=== PATIENT | male | born 1945 | race Caucasian/White ===

== ENCOUNTER → 2016-05-31 | Outpatient (CLI) | payer MEDICARE ==
--- NOTE | 2016-05-31 15:28 | XR ---
Right hip HISTORY: Chronic right hip pain 2 views of the right hip No comparisons Alignment, bone mineralization, joint spaces are maintained. There are vascular calcifications noted incidentally. No fracture or dislocation. IMPRESSION: No significant arthropathy.
--- NOTE | 2016-06-07 14:51 | P.ARTDOP ---
Arterial Doppler LOWER EXTREMITY ARTERIAL DOPPLER: DATE OF SERVICE: 05/31/2016 Reason for study: Claudication. Doppler waveforms: Multiphasic bilaterally throughout. Pulse volume recording: Normal configuration. Pressure gradients: None. Ankle-brachial indices: Greater than 1 bilaterally. Toe pressures: 102 on the right, 100 on the left Impression: Normal study.
== END | disposition home or self-care (01) ==
LOC: RADUSWWP 09:27
PROVIDERS: ATTEND Pediatrics
DX: I73.9 Peripheral vascular disease, unspecified (principal); R20.0 Anesthesia of skin; M25.551 Pain in right hip
CPT/HCPCS: 73502; 93923

== ENCOUNTER → 2016-07-04 | Outpatient (CLI) | payer MEDICARE ==
--- NOTE | 2016-07-04 15:34 | XR ---
EXAM TYPE: LUMBAR SPINE X RAY SERIES COMPARISON: NONE HISTORY: Chronic back TECHNIQUE: 3 views are submitted. FINDINGS: Alignment is anatomic. The pedicles are intact. The transverse processes are intact. There is no s pondylolysis or spondylolisthesis. Moderate degenerative disc disease and facet arthropathy L3-S1. Vascular calcifications. Malalignment of the distal jejunal segment likely chronic. IMPRESSION: 1. Multilevel degenerative disc disease. Follow-up with MRI as clinically warranted. See above
== END ==
LOC: RADXRMAIN 15:08
PROVIDERS: ATTEND Pediatrics
DX: M51.36 Other intervertebral disc degeneration, lumbar region (principal)
CPT/HCPCS: 72100

== ENCOUNTER → 2016-08-07 | Outpatient (CLI) | payer MEDICARE ==
--- NOTE | 2016-08-07 15:21 | MR ---
MR lumbar spine wo con CLINICAL HISTORY: LBP, BLE pain x 2-3 years Multiplanar, multiecho imaging of the lumbar spine was obtained without contrast on a 3 Kylah magnet. REFERENCE:None. FINDINGS: Paraspinal soft tissues are normal. Vertebral body height and alignment are maintained. There is no spondylolysis or spondylolisthesis. T here is a mild levoscoliosis. Cord signal is normal. The conus ends normally at the level of the mid body of L1 .At T12-L1, there is mild, bilateral intervertebral foraminal narrowing there is no significant compr essive discopathy. There are hypertrophic changes in the facets. At L1-2, there is disc space loss and disc desiccation. There is no significant intervertebral forami nal narrowing. There is a diffuse disc displacement effacing the thecal sac. There are hypertrophic c hanges within the facets. There is mild trefoiling of the thecal sac. At L2-3, intervertebral foramina appear reasonably well-maintained. There is a diffuse disc displacem ent. This hypertrophic change and capsulitis within the facets. There is mild trefoiling of the theca l sac. At L3-4, there is a broad-based disc protrusion extending into the intervertebral foramen causing mil d, bilateral intervertebral foraminal narrowing. There is hypertrophic change and capsulitis in the f acets. There is moderate central canal stenosis. At L4-5, the intervertebral foramina are widely maintained. There is a diffuse disc displacement. The re are marked hypertrophic changes in the facets. There is mild trefoiling of the thecal sac. At L5-S1, the intervertebral foramina are well maintained. There is no significant compressive discop athy. There are hypertrophic changes in the facets. IMPRESSION: 1. MULTILEVEL INTERVERTEBRAL FORAMINAL NARROWING. 2. DIFFUSE DEGENERATIVE DISC DISEASE AND FACET ARTHROPATHY. 3. BROAD-BASED DISC PROTRUSION, L3-4 EXTENDING INTO BOTH INTERVERTEBRAL FORAMEN CAUSING MILD TO MODER ATE INTERVERTEBRAL FORAMINAL NARROWING. 4. MILD TO MODERATE CENTRAL CANAL STENOSIS, L3-4.
== END | disposition home or self-care (01) ==
LOC: RADMRIMAIN 14:19
PROVIDERS: ATTEND Nurse Practitioner Family
DX: M48.06 Spinal stenosis, lumbar region (principal); M99.73 Connective tissue and disc stenosis of intervertebral foramina of lumbar region; M51.36 Other intervertebral disc degeneration, lumbar region; M51.26 Other intervertebral disc displacement, lumbar region; M46.06 Spinal enthesopathy, lumbar region
CPT/HCPCS: 72148

== ENCOUNTER 2017-12-29 18:03 | Emergency (ER) | payer MEDICARE ==
[2017-12-29] MEDS ORDERED: ONDANSETRON 4 MG/2 ML VIAL IVP STA (18:17)
[2017-12-29] MEDS ORDERED: HYDROmorphone 1 MG/ML 1 ML SYRINGE IVP STA (18:18)
--- NOTE | 2017-12-29 18:24 | ED ---
Lower Extremity Injury HPI - General Source: patient, RN notes reviewed Mode of arrival: ambulatory Limitations: no limitations <Maico Frazier - Last Filed: 12/29/17 19:11> <Pedro He - Last Filed: 12/29/17 19:15> - General Chief Complaint: Extremity Injury, Lower Stated Complaint: broken leg Time Seen by Provider: 12/29/17 18:13 - History of Present Illness Initial Comments: 72-year-old male presents emergency Department chief complaint right ankle injury. Patient states that he was stepping down his steps and his ankle rolled. Patient states there is a deformity. He has no prior ankle injuries no prior fractures. He does see [facility]opedics associate currently for his back. Patient denies any numbness or tingling at this time. Patient has a head injury no loss conscious. (Maico Frazier) - Related Data Previous Rx's Medication Instructions Recorded Ibuprofen 800 mg PO Q6HR #20 tablet 12/29/17 Allergies Allergy/AdvReac Type Severity Reaction Status Date / Time No Known Allergies Allergy Verified 12/29/17 18:06 Review of Systems ROS Other: All systems not noted in ROS Statement are negative. <Maico Frazier - Last Filed: 12/29/17 19:11> ROS Other: All systems not noted in ROS Statement are negative. <Pedro He - Last Filed: 12/29/17 19:15> ROS Statement: Those systems with pertinent positive or pertinent negative responses have been documented in the HPI. Past Medical History Past Medical History: Hypertension, Osteoarthritis (OA) History of Any Multi-Drug Resistant Organisms: None Reported Past Surgical History: Orthopedic Surgery Additional Past Surgical History / Comment(s): R hand Past Psychological History: No Psychological Hx Reported Smoking Status: Current every day smoker Past Alcohol Use History: None Reported Past Drug Use History: None Reported <Maico Frazier - Last Filed: 12/29/17 19:11> General Exam Limitations: no limitations General appearance: alert, in no apparent distress Respiratory exam: Present: normal lung sounds bilaterally. Absent: respiratory distress, wheezes, rales, rhonchi, stridor Cardiovascular Exam: Present: regular rate, normal rhythm, normal heart sounds. Absent: systolic murmur, diastolic murmur, rubs, gallop, clicks Extremities exam: Present: other (Right ankle there is obvious deformity, severe tenderness with palpation, neurovascular intact with capillary less than 2 seconds. No proximal tib-fib tenderness) <Maico Frazier - Last Filed: 12/29/17 19:11> Vital Signs 12/29/17 12/29/17 12/29/17 18:07 18:42 18:46 Temperature 97.2 F L Pulse Rate 84 82 80 Respiratory 18 18 16 Rate Blood Pressure 190/98 178/94 180/112 O2 Sat by Pulse 99 100 100 Oximetry 12/29/17 18:58 Temperature Pulse Rate 65 Respiratory 18 Rate Blood Pressure 162/89 O2 Sat by Pulse 100 Oximetry Procedures - Orthopedic Fracture Reduction Fracture #1 Consent Obtained: verbal consent Time Out Performed: Yes Side: right Fracture Reduction Location: tibia, fibula Analgesia: procedural sedation Technique: traction/counter-traction Post Reduction X-rays Demonstrate: acceptable reduction Post-Reduction Neuro Exam: intact Post-Reduction Vascular Exam: intact Splint Applied: Yes Patient Tolerated Procedure: well, no complications - Orthopedic Splinting/Casting Injury #1 Side: right Lower Extremity Injury Location: short leg, ankle Lower Extremity Immobilizer: stirrup splint - Procedural Sedation Procedural Sedation Start Time: 18:43 Procedural Sedation Stop Time: 20:05 Indications: fracture/dislocation reduction Preparation: cardiac cath technician applied, pulse oximeter, capnometry used, supplemental O2 applied IV Etomidate Dose (mgs): 18 Complications: none Patient Tolerated Procedure: well, no complications <Pedro He - Last Filed: 12/29/17 19:15> Medical Decision Making <Maico Frazier - Last Filed: 12/29/17 19:11> <Pedro He - Last Filed: 12/29/17 19:15> - Medical Decision Making 72-year-old male presents emergency Department chief complaint of right ankle injury. Patient has bimalleolar fracture with subluxation. This was reduced by Dr. He. Patient was splinted and will follow-up with his orthopedic physician [facility]. Return parameters were discussed. Case discussed with Freda Cox for [address] [place] [address] who states that he can follow-up on Sunday. (Maico Frazier) Patient was reevaluated by myself, Dr. He. Patient did have conscious sedation and reduction done by myself. OCL was placed. I did review and agree with PAs findings. This includes all diagnostic and treatment plans. Patient is made aware of strict warning to not bear weight on the right leg and need for follow-up with orthopedics and probable surgery. (Pedro He) Disposition Is patient prescribed a controlled substance at d/c from ED?: Yes When asked, does pt state using other controlled substances?: No If prescribed controlled substance>3 days was MAPS reviewed?: Prescribed <3 Days <Maico Frazier - Last Filed: 12/29/17 19:11> <Pedro He - Last Filed: 12/29/17 19:15> Clinical Impression: Bimalleolar ankle fracture, Subluxation of ankle joint Disposition: HOME SELF-CARE Condition: Stable Instructions: Ankle Fracture (ED) Additional Instructions: Please return to the Emergency Department if symptoms worsen or any other concerns. Prescriptions: Ibuprofen 800 mg PO Q6HR #20 tablet Referrals: Eladio Nance MD [Primary Care Provider] - 1-2 days Daria Lay DO [Doctor of Osteopathic Medicine] - 1-2 days
--- NOTE | 2017-12-29 18:31 | XR ---
EXAMINATION TYPE: XR ankle complete RT DATE OF EXAM: 12/29/2017 CLINICAL HISTORY: Right ankle pain after a fall TECHNIQUE: Frontal, lateral and oblique images of the right ankle are obtained. COMPARISON: None. FINDINGS: There is a transversely oriented medial malleolus fracture. There is anterior medial sublux ation of the ankle joint with the tibia medially oriented on the talus. There is an obliquely oriente d fracture of the lateral malleolus. Both fractures are comminuted with more comminution seen of the medial malleolus fracture and the lateral malleolus fracture. No posterior malleolus fracture is defi nitively seen. There is overlying soft tissue swelling. IMPRESSION: Comminuted intra-articular bimalleolar right ankle fracture with anterior medial subluxat ion of the ankle joint without complete dislocation.
[2017-12-29] MEDS: ETOMIDATE 2 MG/ML 10 ML VIAL IV STA ×2 (18:43→18:44)
[2017-12-29 18:59] VITALS: PULSE 65
--- NOTE | 2017-12-29 19:05 | XR ---
EXAMINATION TYPE: XR ankle complete RT DATE OF EXAM: 12/29/2017 CLINICAL HISTORY: Right ankle fracture and subluxation. TECHNIQUE: Frontal, lateral and oblique images of the right ankle are obtained. COMPARISON: Radiograph's of the right ankle earlier on the same date. FINDINGS: There is improved anatomic alignment status post reduction. Talotibial joint appears aligne d. There is redemonstration of bimalleolar comminuted fractures with overlying soft tissue swelling a s discussed on the radiograph earlier the same date of the right ankle. Fibular fracture distal fragm ent is displaced posteriorly 7 mm. Malleolar fracture is displaced anteriorly 5 mm. IMPRESSION: Improved anatomic alignment post reduction of the right ankle fracture subluxation, now a ppropriately aligned.
[2017-12-29 19:23] VITALS: BP 181/99; RESP 17; TEMP 98
== END 2017-12-29 19:46 | disposition home or self-care (01) ==
LOC: EC 18:03
DX: S82.841A Displaced bimalleolar fracture of right lower leg, initial encounter for closed fracture (principal); S09.90XA Unspecified injury of head, initial encounter; F17.200 Nicotine dependence, unspecified, uncomplicated; Z98.890 Other specified postprocedural states; W00.1XXA Fall from stairs and steps due to ice and snow, initial encounter; X50.1XXA Overexertion from prolonged static or awkward postures, initial encounter; Y93.01 Activity, walking, marching and hiking
CPT/HCPCS: 73610; 99283; 27810; 99152; 96374; 96375; J2405; J1170

== ENCOUNTER → 2018-01-02 | Outpatient (CLI) | payer MEDICARE ==
--- NOTE | 2018-01-02 15:16 | CT ---
EXAMINATION TYPE: CT ankle RT wo con DATE OF EXAM: 01/02/2018 COMPARISON: None INDICATION: Trimalleolar fx DLP: 296 mGycm, Automated exposure control for dose reduction was used. CONTRAST: None CT of the ankle is performed on a spiral scan at 3 mm thick sections. Reconstructed images in the cor onal and sagittal planes are reviewed on the computer. FINDINGS: Posterior tibial fracture is evident. This is slightly shifted towards the lateral aspect proximally 3 mm. There is an oblique fracture distal fibula. There is a comminuted fracture the medial malleolus . Diffuse overlying soft tissue swelling is present. There is lateral subluxation of the talus in relation to the tibia. The medial malleolus laterally wi th the talus. There is lateral subluxation of the lateral malleolus relation to the proximal fracture No additional fractures are evident. IMPRESSIONS: 1. Trimalleolar fracture. 2. Subluxation of the talus laterally with associated shift of both medial and lateral malleoli. 3. The medial malleolus fracture is noted to be comminuted.
== END ==
LOC: RADCTMAIN 12:47
PROVIDERS: ATTEND Orthopaedic Surgery
DX: S82.851A Displaced trimalleolar fracture of right lower leg, initial encounter for closed fracture (principal); S93.01XA Subluxation of right ankle joint, initial encounter; S82.51XA Displaced fracture of medial malleolus of right tibia, initial encounter for closed fracture

== ENCOUNTER 2018-01-18 13:15 | Inpatient (IN) | payer MEDICARE ==
[2018-01-23 14:56] VITALS: BMI 28.3
[2018-01-24] MEDS ORDERED: MIDAZOLAM (PF) 2 MG/2 ML VIAL IV PRN (19:33)
[2018-01-24] MEDS ORDERED: LIDOCAINE 1% 20 ML VIAL (10MG/ML) FOR IV START INTRADERMA PRN (19:33)
[2018-01-24] MEDS ORDERED: ONDANSETRON 4 MG/2 ML VIAL IVP ONE (19:33)
[2018-01-24] MEDS ORDERED: DEXAMETHASONE SOD PHOSPHATE 10 MG/ML 1 ML VIAL IV ONE (19:33)
[2018-01-24] MEDS ORDERED: fentaNYL (PF) 50 MCG/ML 2 ML AMP IV PRN (19:33)
[2018-01-25] MEDS ORDERED: ceFAZolin IN SWFI 2 GM/20 ML SYRINGE IVP ONE (05:00)
[2018-01-25] MEDS ORDERED: MIDAZOLAM 2 MG/2 ML VIAL IVP ONE ×2 (12:55→13:55)
[2018-01-25] MEDS: LACTATED RINGERS 1,000 ML IV SCH ×2 (13:03→23:07)
[2018-01-25] MEDS ORDERED: GLYCOPYRROLATE 0.2 MG/ML 2 ML VIAL ONE (15:56)
[2018-01-25] MEDS ORDERED: PROPOFOL 10 MG/ML 20 ML VIAL IV ONE (15:56)
[2018-01-25] MEDS ORDERED: ePHEDrine SULFATE/0.9% NACL/PF 50 MG/5 ML SYRINGE IV ONE (15:56)
[2018-01-25] MEDS ORDERED: MIDAZOLAM 2 MG/2 ML VIAL ONE (15:56)
[2018-01-25] MEDS ORDERED: NEOSTIGMINE 1 MG/ML 10 ML VIAL ONE (15:56)
[2018-01-25] MEDS ORDERED: ROCURONIUM BROMIDE 10 MG/ML 10 ML VIAL IV ONE (15:56)
[2018-01-25] MEDS ORDERED: ROPIVACAINE 5 MG/ML 30 ML VIAL ONE (15:56)
[2018-01-25] MEDS ORDERED: fentaNYL (PF) 50 MCG/ML 2 ML AMP ONE (15:56)
[2018-01-25] MEDS ORDERED: SUCCINYLCHOLINE CHLORIDE 100 MG/5 ML SYR IV ONE (15:56)
[2018-01-25] MEDS ORDERED: HYDROmorphone (PF) 1 MG/ML ONE (15:56)
[2018-01-25] MEDS ORDERED: LIDOCAINE 1% INJ 10MG/ML (20 ML MDV) ONE (15:56)
--- NOTE | 2018-01-25 17:53 | P.OP ---
Date of Procedure: 01/25/18 Preoperative Diagnosis: 1. Closed right trimalleolar ankle fracture 2. Coronary artery disease Postoperative Diagnosis: Same Procedure(s) Performed: 1. Open reduction and internal fixation of medial and lateral malleolus 2. Nonoperative management posterior malleolus 3. Manual application of joint stress by physician for radiography, right ankle 4. Application of short-leg splint by physician Anesthesia: [facility], [facility] Surgeon: Manoj Jo Estimated Blood Loss (ml): 25 IV fluids (ml): 800 Pathology: none sent Condition: stable Disposition: PACU Indications for Procedure: The patient is a 72-year-old male with multiple medical problems who sustained an injury to his right ankle about a month ago and a low-energy fall. He came to my office and was found to have a displaced trimalleolar ankle fracture and hemorrhagic fracture blisters. He underwent wound care for his fracture blisters, closed reduction and application of a splint. He was sent for a computed tomography scan. While waiting for the soft tissue swelling and blisters to resolve he was sent for clearance. He was ultimately cleared for surgery and I discussed options to treat his fracture with the patient and his family. My recommendation was to perform an open reduction and internal fixation. We discussed the potential risks and Occasions of surgery including but not limited to risk of anesthesia, superficial infection, deep infection, delayed wound healing, superficial wound necrosis, nonunion the fraction site, malunion of the fracture site, posterior medical arthritis, postoperative displacement, chronic pain, chronic swelling, need for further surgery, DVT, PE , other medical complications, and possibly loss of life or limb. The patient voiced his understanding of this and provided his verbal and written consent to go forward with surgery. Description of Procedure: The patient was identified in preoperative holding and the correct right leg was marked with my initials. I reviewed the consent form with the patient and his family. All of their questions were answered. The patient was given a popliteal and saphenous nerve block by anesthesia. The patient was then brought back to the operating room by anesthesia. He was positioned on the OR table where general anesthetic and preoperative antibiotics were administered. A tourniquet was applied to the proximal aspect of the right leg. A bone foam bump was placed under the right buttock internally rotating only to neutral. All other bony promises were well-padded. A ramp was placed under the right like to facilitate imaging. The right leg was then prepped and draped in standard sterile fashion. Prior to starting surgery timeout was performed identifying the correct patient, operative extremity, and procedure. The patient's leg was then elevated, exsanguinated with an Esmarch bandage, and the tourniquet was inflated to 250 mmHg. I began by outlining a straight lateral incision to the distal fibula. Skin incision made a scalpel and dissection was carried down carefully through the subcutaneous tissue to the distal fibula. The fracture site was opened and there was early callus formation. The fracture site was gently debrided until was fully exposed. An assistant teaching professor applied gentle longitudinal traction and I gently keyed the fracture into reduced position with digital pressure and a [id number] reduction clamp. Fluoroscopy was used to verify reduction. The fibula appeared to be out to length. I then placed a 2.7 mm lag screw across the fracture using a 2.7 mm drill bit to create a gliding hole and the anterior cortex the proximal shaft and a 2.0 mm drill bit to create a threaded hole in the posterior cortex the distal fragment. A fully threaded solid 2.7 mm lag screw was placed across the fracture generating excellent compression. I then placed a precontoured distal fibular locking plate over the lateral aspect of the ankle. A nonlocking 3.5 mm screw was placed just proximal to the fracture bringing the plate down to bone. I then placed an additional 2 nonlocking 3.5 mm screws proximally. A nonlocking 2.7 mm screw was placed distally bring the plate down to bone and then the remaining holes distally were filled with locking 2.7 mm screws. Fluoroscopy was then brought in to verify that the fibula fracture was reduced and the hardware was in appropriate position. Attention was then turned to the medial malleolus. A longitudinal incision was marked out over the medial malleolus. Skin incision was made and dissection was carried down to the medial malleolus fragment. The fracture was debrided and fully exposed up to the shoulder of the ankle mortise. A 2.0 mm drill bit was used to create a unicortical perforation just proximal to the fracture. A [id number] reduction clamp was used with 1 trena in this drill hole and the second trena at the tip of the medial malleolus. The fracture was gently teased into reduced position and the reduction clamp was tightened. Clinically the fracture was anatomically reduced and fluoroscopy was used to verify reduction. I then placed 2 nonlocking 2.7 mm screws measuring 55 mm through the medial malleolus and up into the metaphysis of the tibia. 2.7 mm screws were used due to the small size of the fracture fragment. The reduction clamp was removed and the reduction held. Final fluoroscopic images were taken including a mortise view and true talar dome overlap lateral. A manual external rotation stress was applied to the ankle and there is no widening at the medial clear space or incisura. I interpreted this as a stable ankle fracture construct not requiring syndesmotic fixation. The wounds were copiously irrigated and closed in layers. A sterile dressing consisting of Betadine soaked Adaptic, 4 x 4, and web rolls applied. The drapes were taken down and a well-padded bulky He splint was placed with the ankle at neutral. The patient was awoken from his anesthetic, transferred to a gurney, and brought to PACU without the procedure well. Plan: The patient would like to discharge home which I think is fine as long as his pain is controlled, his vital signs are stable, and he is able to safely ambulate with crutches. History and strictly nonweightbearing on his right ankle. He will follow-up in the office in 1-2 weeks for splint removal, wound exam, and x-rays of the ankle.
[2018-01-25] MEDS: HYDROmorphone 1 MG/ML 1 ML SYRINGE IVP PRN ×4 (18:05→18:31)
[2018-01-25] MEDS ORDERED: KETOROLAC 30 MG/ML 1 ML VIAL IVP ONE (18:13)
[2018-01-25] MEDS ORDERED: HYDROmorphone 0.5 MG/0.5 ML SYRINGE IVP PRN (18:46)
[2018-01-25] MEDS ORDERED: NALOXONE 0.4 MG/ML 1 ML VIAL IV PRN (18:46)
[2018-01-25] MEDS ORDERED: ONDANSETRON 4 MG/2 ML VIAL IVP PRN (18:46)
[2018-01-25] MEDS ORDERED: HYDROcodone/APAP 5-325MG 1 EACH TAB PO PRN ×2 (18:46)
[2018-01-25] MEDS ORDERED: LACTATED RINGERS 1,000 ML IV ONE (19:00)
[2018-01-25] MEDS ORDERED: SENNOSIDES-DOCUSATE SODIUM 1 EACH TAB PO SCH (21:00)
[2018-01-25] MEDS ORDERED: TAMSULOSIN 0.4 MG CAP.ER.24H PO SCH (22:15)
--- NOTE | 2018-01-25 22:31 | CONS ---
CONSULTATION DATE OF CONSULTATION: 01/25/2018 REASON FOR CONSULTATION: Medical management requested by Dr. Jo. CONSULTATION: This is a pleasant 72-year-old patient who follows with Dr. Nance. The patient underwent ORIF of the right ankle today. Pain is controlled postoperative. No nausea, vomiting. No chest pain. Did tolerate supper. Chronic stable medical conditions include hypertension, hyperlipidemia, osteoarthritis. Right foot in a dressing. REVIEW OF SYSTEMS: CONSTITUTIONAL: None. HEENT: Decreased hearing. RESPIRATORY: None. GASTROINTESTINAL: None. GENITOURINARY: Difficulty with urination, chronically starting to stream. MUSCULOSKELETAL: Arthritic pain in joints. DERMATOLOGICAL, HEMATOLOGIC, LYMPHATIC: none. PSYCHIATRY none. NEUROLOGICAL: None. PAST MEDICAL HISTORY: Hyperlipidemia, hypertension, osteoarthritis, difficulty urination. PAST SURGICAL HISTORY: Right hand surgery. SOCIAL HISTORY: The patient smokes 1/2 cigars a day for close to 50 years. Lives by himself. Used to work at [employer]. Is a . FAMILY HISTORY: Breast cancer. HOME MEDICATIONS: 1. Norvasc 10 mg p.o. daily. 2. Zocor 20 mg p.o. daily. 3. Meloxicam 50 mg p.o. daily. 4. Cozaar 25 mg p.o. daily. 5. Ibuprofen 800 mg p.o. t.i.d. p.r.n. 6. Tenormin 50 mg p.o. daily. ALLERGIES: None. EXAMINATION: VITAL SIGNS: Temp 97.4, pulse 60, respiration 16, blood pressure 159/78, pulse ox 99 percent on room air. GENERAL APPEARANCE: Average built, sitting up, awake. EYES: Pupils equal. Conjunctivae normal. HEENT: External appearance of nose and ears normal. Oral cavity normal. Decreased hearing. NECK: JVD not raised. Mass not palpable. RESPIRATORY: Effort normal. LUNGS: Slightly decreased breath sounds. CARDIOVASCULAR: 1st and 2nd sounds. No edema. ABDOMEN: Soft, nontender. Liver and spleen not palpable. LYMPHATICS: No lymph nodes palpable in the neck or axilla. PSYCHIATRY: Alert and oriented x3. Mood and affect normal. NEUROLOGICAL: Pupils equal. Cranial nerves grossly intact. Power and sensation grossly intact. MUSCULOSKELETAL: Evidence of osteoarthritis especially in the hands. Dressing on the right ankle. INVESTIGATIONS: Currently no blood work. ASSESSMENT: 1. Right ankle ORIF. 2. Essential hypertension. 3. Hyperlipidemia. 4. Primary osteoarthritis. 5. Possibly benign prostatic hypertrophy. 6. Chronic nicotine dependence, patient is a cigarette smoker. PLAN: Home medications will be resumed. Pain control is in place. Patient getting Lovenox for DVT prophylaxis. Getting IV fluids. I will also give patient a nicotine patch. The patient should follow up with Dr. Nance upon discharge. Thank you Dr. Jo. [id number] / ANTOINEN: [id number] /
[2018-01-25] MEDS: ceFAZolin IN SWFI 2 GM/20 ML SYRINGE IVP SCH (23:03)
[2018-01-26 08:15] LABS: Basophils # (A) 0.1 k/uL (0-0.2); Basophils % (A) 0 %; Eosinophils % (A) 0 %; HCT 42.2 % (39.0-53.0); HGB 13.8 gm/dL (13.0-17.5); Lymphocytes # (A) 1.8 k/uL (1.0-4.8); Lymphocytes % (A) 13 %; MCH 30.5 pg (25.0-35.0); MCHC 32.5 g/dL (31.0-37.0); MCV 93.8 fL (80.0-100.0); Mean Platelet Volume 6.3; Monocytes # (A) 0.9 k/uL (0-1.0); Monocytes % (A) 6 %; Neutrophils # (A) 11.5 k/uL (1.3-7.7); Neutrophils % (A) 80 %; Platelet Count 306 k/uL (150-450); WBC 14.5 k/uL (3.8-10.6)
[2018-01-26 08:17] LABS: Anion Gap 10 mmol/L; Blood Urea Nitrogen 27 mg/dL (9-20); Calcium 9.5 mg/dL (8.4-10.2); Carbon Dioxide 25 mmol/L (22-30); Chloride 107 mmol/L (98-107); Glucose 125 mg/dL (74-99); Potassium 4.3 mmol/L (3.5-5.1); Sodium 142 mmol/L (137-145)
[2018-01-26] MEDS ORDERED: NICOTINE 14MG/24HR PATCH TRANSDERM SCH (09:00)
[2018-01-26] MEDS ORDERED: ATENOLOL 50 MG TAB PO SCH (09:00)
[2018-01-26] MEDS ORDERED: amLODIPine 10 MG TAB PO SCH (09:00)
[2018-01-26] MEDS ORDERED: LOSARTAN 25 MG TAB PO SCH (09:00)
[2018-01-26] MEDS ORDERED: ENOXAPARIN 30 MG/0.3 ML SYRINGE SQ SCH (09:00)
[2018-01-26] MEDS ORDERED: ATORVASTATIN 10 MG TAB PO SCH (09:00)
--- NOTE | 2018-01-26 09:26 | P.DS ---
Providers Date of admission: 01/25/18 12:08 Expected date of discharge: 01/26/18 Attending physician: Manoj Jo Consults: 01/25/18 18:46 Consult Physician Routine Consulting Provider: Eladio Nance Consult Reason/Comments: post op medical management Do you want consulting provider notified?: Yes 01/25/18 19:11 Consult Physician Routine Consulting Provider: Gabe Sherman Consult Reason/Comments: medical managment Do you want consulting provider notified?: Yes Primary care physician: Eladio Nance - Discharge Diagnosis(es) (1) Trimalleolar fracture of right ankle Current Visit: Yes Status: Acute (2) Status post ORIF of fracture of ankle Current Visit: Yes Status: Acute Hospital Course: This is a 72-year-old male who is status post open reduction and internal fixation of the right ankle. Patient sustained a closed right trimalleolar ankle fracture after a fall 1 month ago. Patient presents for evaluation. After discussion and consideration patient elects to proceed with open reduction and internal fixation of the right ankle. Patient is seen preoperatively by Dr. Jo and cleared for surgery by his primary care physician. Patient is admitted to [facility] on 01/25/2018 for ORIF of the right ankle. The procedures performed without complication or sequelae. The patient is doing well postoperatively. Labs and vital signs are stable on day of discharge. On day of discharge patient's splint is clean, dry and intact. There is no drainage noted at this time. Capillary refill is normal at less than 2 seconds. Sensation is intact. Neurovascular status to the right lower extremity is intact. Patient is discharged home in good condition. Please see med rec for accurate list of home medications. Plan - Discharge Summary Discharge Rx Participant: No New Discharge Prescriptions: New HYDROcodone/APAP 5-325MG [[place] 5-325] 1 - 2 tab PO Q6HR PRN #40 tab PRN Reason: Pain Aspirin 325 mg PO DAILY #14 tab Docusate [Colace] 100 mg PO BID #60 capsule Tamsulosin [Flomax] 0.4 mg PO PC-SUPPER #30 cap.er.24h No Action Ibuprofen 800 mg PO TID PRN PRN Reason: Pain amLODIPine [Norvasc] 10 mg PO DAILY Atenolol [Tenormin] 50 mg PO DAILY Losartan [Cozaar] 25 mg PO DAILY Meloxicam 15 mg PO DAILY Simvastatin [Zocor] 20 mg PO DAILY Discharge Medication List Atenolol [Tenormin] 50 mg PO DAILY 01/23/18 [History] Ibuprofen 800 mg PO TID PRN 01/23/18 [History] Losartan [Cozaar] 25 mg PO DAILY 01/23/18 [History] Meloxicam 15 mg PO DAILY 01/23/18 [History] Simvastatin [Zocor] 20 mg PO DAILY 01/23/18 [History] amLODIPine [Norvasc] 10 mg PO DAILY 01/23/18 [History] Aspirin 325 mg PO DAILY #14 tab 01/25/18 [Rx] Docusate [Colace] 100 mg PO BID #60 capsule 01/25/18 [Rx] HYDROcodone/APAP 5-325MG [[place] 5-325] 1 - 2 tab PO Q6HR PRN #40 tab 01/25/18 [ Rx] Tamsulosin [Flomax] 0.4 mg PO PC-SUPPER #30 cap.er.24h 01/25/18 [Rx] Follow up Appointment(s)/Referral(s): Manoj Jo MD [Medical Doctor] - 2 Weeks Activity/Diet/Wound Care/Special Instructions: Please see printed instructions. Strictly nonweightbearing to the right lower extremity. Please take medications as prescribed. Keep splint clean, dry and intact. Please follow-up with [facility] and call if any questions or concerns. [phone]. Discharge Disposition: HOME SELF-CARE
[2018-01-26] MEDS: ceFAZolin IN SWFI 2 GM/20 ML SYRINGE IVP SCH (09:35)
[2018-01-26 09:56] VITALS: BP 145/70; PULSE 65; RESP 18; TEMP 97.5
--- NOTE | 2018-01-26 15:27 | P.ONQ ---
Anesthesiology Proc Note - PNB - Peripheral Nerve Block Performed Right Popliteal Single Time Out Performed: Yes Procedure Start Time: 13:56 Procedure Stop Time: 14:02 Indication: Acute Post-Operative Pain, Requested by physician Sedation Type: Sedate with meaningful contact maintained Preparation: Sterile Prep Needle Size: 50mm (2") Needle Gauge: 21 Technique: Ultrasound Injectate: 0.5% Ropivacaine (see comment for volume) (Ropivacaine 0.5% 25 mL for popliteal block and 5 mL for saphenous) Pain Paresthesia on Injection Noted: No Resistance on Injection: Normal Events: Uneventful and Well Tolerated
--- NOTE | 2018-01-26 19:08 | PN ---
PROGRESS NOTE DATE OF SERVICE: 01/26/2018 PRESENTING COMPLAINT: Right ankle surgery. INTERVAL HISTORY: Patient is status post right ankle surgery. Pain is present. Daughter is present at the bedside. No nausea, vomiting. Tolerating his diet. Otherwise doing well. REVIEW OF SYSTEMS: Done for constitutional, cardiovascular, GI, pulmonary; relevant findings as above. CURRENT MEDICATIONS: Reviewed. PHYSICAL EXAMINATION: Temperature 97.5, pulse 65, respiratory rate 18, blood pressure 140/70, pulse ox 96% on room air. GENERAL APPEARANCE: Sitting up in chair, comfortable, awake. EYES: Pupils equal. Conjunctivae normal. NECK: JVD not raised. Mass not palpable. Respiratory effort increased. LUNGS: Slightly decreased breath sounds. CARDIOVASCULAR: First and second sounds normal. No edema. ABDOMEN: Soft, nontender. Liver and spleen not palpable. . PSYCHIATRY: Alert and oriented x3. Mood and affect normal. EXTREMITIES: Right foot in a dressing cast. INVESTIGATIONS: White count 14.5, hemoglobin 13.8, potassium 4.3. ASSESSMENT: 1. Right ankle ORIF. 2. Essential hypertension. 3. Hyperlipidemia. 4. Primary osteoarthritis. 5. Possible benign prostatic hypertrophy with prostatism symptoms. 6. Chronic nicotine dependence, patient is a cigarette smoker. PLAN: Continue current medication and treatment plan. Patient will be sent home with [facility]. Follow up with his family doctor. MMODL / IJN: [id number] /
--- NOTE | 2018-01-27 14:47 | FL ---
EXAMINATION TYPE: FL guidance operating room, XR ankle limited RT DATE OF EXAM: 01/25/2018 CLINICAL HISTORY: Right ankle fracture. Limited intraoperative views right ankle. TECHNIQUE: Fluoroscopy. COMPARISON: Right ankle x-ray December 29, 2017 FINDINGS: Fluoroscopic guidance was provided during open reduction internal fixation procedure perfo rmed by Dr. Jo. A total of 32 seconds of fluoroscopic time was utilized during the procedure a nd 2 spot intraoperative images are acquired. Intraoperative images acquired show placement of 2 fixating screws through transverse displaced media l malleolus fracture. There is additional placement of lateral fixating plate and second fixating scr ews through oblique minimally displaced fracture of the lateral malleolus. Satisfactory alignment is seen on intraoperative images saved. IMPRESSION: As Above.
== END 2018-01-26 12:30 | disposition home or self-care (01) | DRG 494 ==
LOC: 2ORMAIN 01-25 12:08 → 4SSUR 01-25 19:01
PROVIDERS: ADMIT Orthopaedic Surgery; ATTEND Orthopaedic Surgery
PROC: 0QSG04Z Reposition Right Tibia with Internal Fixation Device, Open Approach (ICD-10-PCS; principal; 2018-01-25 14:15)
PROC: 0QSJ04Z Reposition Right Fibula with Internal Fixation Device, Open Approach (ICD-10-PCS; principal; 2018-01-25 14:15)
DX: S82.851A Displaced trimalleolar fracture of right lower leg, initial encounter for closed fracture (principal); E78.5 Hyperlipidemia, unspecified; F17.290 Nicotine dependence, other tobacco product, uncomplicated; I10 Essential (primary) hypertension; I25.10 Atherosclerotic heart disease of native coronary artery without angina pectoris; M19.91 Primary osteoarthritis, unspecified site; Z79.899 Other long term (current) drug therapy; Z80.3 Family history of malignant neoplasm of breast; N40.0 Benign prostatic hyperplasia without lower urinary tract symptoms
CPT/HCPCS: 64450; 80048; 85025

== ENCOUNTER → 2019-07-11 | Outpatient (CLI) | payer MEDICARE ==
--- NOTE | 2019-07-16 15:07 | P.ARTDOP ---
Arterial Doppler LOWER EXTREMITY ARTERIAL DOPPLER: DATE OF SERVICE: 07/11/2019 Reason for study: Bilateral leg numbness with walking. Doppler waveforms: Multiphasic bilaterally throughout. Pulse volume recording: []. Pressure gradients: None. Ankle-brachial indices: Greater than 1 bilaterally. Toe brachial indices: 0.87 on the right, 0.79 on the left Impression: Normal study.
== END | disposition home or self-care (01) ==
LOC: RADUSWWP 12:56
PROVIDERS: ATTEND Physical Medicine & Rehabilitation
DX: M79.661 Pain in right lower leg (principal); M54.5 Low back pain; M47.816 Spondylosis without myelopathy or radiculopathy, lumbar region; M51.36 Other intervertebral disc degeneration, lumbar region; R20.2 Paresthesia of skin
CPT/HCPCS: 93922

== ENCOUNTER 2021-09-14 16:26 | Emergency (ER) | payer MEDICARE ==
[2021-09-14] MEDS ORDERED: SODIUM CHLORIDE 0.9% 500 ML 500 ML IV STA (17:02)
[2021-09-14] MEDS ORDERED: predniSONE 10 MG TAB PO STA (17:03)
[2021-09-14] MEDS ORDERED: valACYclovir HCL 1,000 MG TABLET PO STA (17:11)
--- NOTE | 2021-09-14 17:14 | ED ---
General Adult HPI - General Chief complaint: Neuro Symptoms/Deficit Stated complaint: Face drooping Time Seen by Provider: 09/14/21 17:00 Source: patient, RN notes reviewed, old records reviewed Mode of arrival: wheelchair Limitations: no limitations - History of Present Illness Initial comments: This is a 76-year-old male presents emergency Department complaining of left- sided facial droop. Patient states it started last evening. Patient states he woke up today and it continued so he came to the emergency department. Patient states his eye is also read because he can't completely shut his right eye. Patient denies any headache per patient denies any weakness of any family per patient denies any slurred speech. Patient denies any recent fever chills or cough. Patient denies any chest pain difficulty breathing shortness of breath. - Related Data Home Medications Medication Instructions Recorded Confirmed Ibuprofen 800 mg PO TID PRN 01/23/18 01/25/18 Losartan [Cozaar] 25 mg PO DAILY 01/23/18 01/25/18 Meloxicam 15 mg PO DAILY 01/23/18 01/25/18 Simvastatin [Zocor] 20 mg PO DAILY 01/23/18 01/25/18 amLODIPine [Norvasc] 10 mg PO DAILY 01/23/18 01/25/18 atenoloL [Tenormin] 50 mg PO DAILY 01/23/18 01/25/18 Previous Rx's Medication Instructions Recorded Aspirin 325 mg PO DAILY #14 tab 01/25/18 Docusate [Colace] 100 mg PO BID #60 capsule 01/25/18 HYDROcodone/APAP 5-325MG [[place] 1 - 2 tab PO Q6HR PRN #40 tab 01/25/18 5-325] Tamsulosin [Flomax] 0.4 mg PO PC-SUPPER #30 cap.er.24h 01/25/18 predniSONE [Deltasone] 30 mg PO BID #15 tab 09/14/21 valACYclovir HCL [Valacyclovir] 1,000 mg PO TID #30 tab 09/14/21 Allergies Allergy/AdvReac Type Severity Reaction Status Date / Time No Known Allergies Allergy Verified 09/14/21 18:40 Review of Systems ROS Statement: Those systems with pertinent positive or pertinent negative responses have been documented in the HPI. ROS Other: All systems not noted in ROS Statement are negative. Past Medical History Past Medical History: Hyperlipidemia, Hypertension, Osteoarthritis (OA) Additional Past Medical History / Comment(s): Recent difficulty urinating, "feels like he has to go but can't." History of Any Multi-Drug Resistant Organisms: None Reported Past Surgical History: Orthopedic Surgery Additional Past Surgical History / Comment(s): Right hand surgery. Past Anesthesia/Blood Transfusion Reactions: No Reported Reaction Past Psychological History: No Psychological Hx Reported Smoking Status: Current every day smoker Past Alcohol Use History: Rare Past Drug Use History: None Reported - Past Family History Sister(s) Family Medical History: Cancer Additional Family Medical History / Comment(s): Breast cancer. General Exam - General Exam Comments Initial Comments: GENERAL: Patient is well-developed and well-nourished. Patient is nontoxic and well- hydrated and is in no acute distress. ENT: Neck is soft and supple. No significant lymphadenopathy is noted. Oropharynx i s clear. Moist mucous membranes. Neck has full range of motion without eliciting any pain. EYES: The sclera were anicteric and conjunctiva were pink and moist. Extraocular movements were intact and pupils were equal round and reactive to light. Eyelids were unremarkable. PULMONARY: Unlabored respirations. Good breath sounds bilaterally. No audible rales rhonchi or wheezing was noted. CARDIOVASCULAR: There is a regular rate and rhythm without any murmurs gallops or rubs. ABDOMEN: Soft and nontender with normal bowel sounds. SKIN: Skin is clear with no lesions or rashes and otherwise unremarkable. NEUROLOGIC: Patient is alert and oriented x3. Patient has facial droop on the right side including the forehead.. Motor and sensory are also intact. Normal speech, volume and content. Symmetrical smile. MUSCULOSKELETAL: Normal extremities with adequate strength and full range of motion. No lower extremity swelling or edema. No calf tenderness. LYMPHATICS: No significant lymphadenopathy is noted PSYCHIATRIC: Normal psychiatric evaluation. Limitations: no limitations Course Vital Signs 09/14/21 16:45 Temperature 97.8 F Pulse Rate 58 L Respiratory 16 Rate Blood Pressure 140/72 O2 Sat by Pulse 97 Oximetry Medical Decision Making - Medical Decision Making EKG shows sinus bradycardia 53 bpm DC interval 296 QRS is 156 QT intervals 501 QTC is 485. Patient's EKG shows a right bundle bhakti block. Chest x-ray shows a right upper lobe lesion. CT of the brain shows no acute abnormality. Patient received valacyclovir and prednisone in the emergency. - Lab Data Result diagrams: 09/14/21 17:20 09/14/21 17:20 Lab Results 09/14/21 09/14/21 09/14/21 Range/Units 17:20 17:20 17:20 WBC 10.0 (3.8-10.6) k/uL RBC 5.19 (4.30-5.90) m/uL Hgb 15.8 (13.0-17.5) gm/dL Hct 47.7 (39.0-53.0) % MCV 91.9 (80.0-100.0) fL MCH 30.4 (25.0-35.0) pg MCHC 33.0 (31.0-37.0) g/dL RDW 13.7 (11.5-15.5) % Plt Count 225 (150-450) k/uL MPV 6.6 Neutrophils % 67 % Lymphocytes % 23 % Monocytes % 6 % Eosinophils % 2 % Basophils % 1 % Neutrophils # 6.7 (1.3-7.7) k/uL Lymphocytes # 2.3 (1.0-4.8) k/uL Monocytes # 0.6 (0-1.0) k/uL Eosinophils # 0.2 (0-0.7) k/uL Basophils # 0.1 (0-0.2) k/uL PT 10.3 (9.0-12.0) sec INR 0.9 (<1.2) APTT 25.5 (22.0-30.0) sec Sodium 139 (137-145) mmol/L Potassium 4.0 (3.5-5.1) mmol/L Chloride 108 H (98-107) mmol/L Carbon Dioxide 25 (22-30) mmol/L Anion Gap 6 mmol/L BUN 25 H (9-20) mg/dL Creatinine 0.97 (0.66-1.25) mg/dL Est GFR (CKD-EPI)AfAm 87 (>60 ml/min/1.73 sqM) Est GFR (CKD-EPI)NonAf 76 (>60 ml/min/1.73 sqM) Glucose 139 H (74-99) mg/dL Calcium 9.6 (8.4-10.2) mg/dL Total Bilirubin 0.6 (0.2-1.3) mg/dL AST 22 (17-59) U/L ALT 16 (4-49) U/L Alkaline Phosphatase 71 (38-126) U/L Troponin I (0.000-0.034) ng/mL Total Protein 7.2 (6.3-8.2) g/dL Albumin 4.4 (3.5-5.0) g/dL 09/14/21 Range/Units 17:20 WBC (3.8-10.6) k/uL RBC (4.30-5.90) m/uL Hgb (13.0-17.5) gm/dL Hct (39.0-53.0) % MCV (80.0-100.0) fL MCH (25.0-35.0) pg MCHC (31.0-37.0) g/dL RDW (11.5-15.5) % Plt Count (150-450) k/uL MPV Neutrophils % % Lymphocytes % % Monocytes % % Eosinophils % % Basophils % % Neutrophils # (1.3-7.7) k/uL Lymphocytes # (1.0-4.8) k/uL Monocytes # (0-1.0) k/uL Eosinophils # (0-0.7) k/uL Basophils # (0-0.2) k/uL PT (9.0-12.0) sec INR (<1.2) APTT (22.0-30.0) sec Sodium (137-145) mmol/L Potassium (3.5-5.1) mmol/L Chloride (98-107) mmol/L Carbon Dioxide (22-30) mmol/L Anion Gap mmol/L BUN (9-20) mg/dL Creatinine (0.66-1.25) mg/dL Est GFR (CKD-EPI)AfAm (>60 ml/min/1.73 sqM) Est GFR (CKD-EPI)NonAf (>60 ml/min/1.73 sqM) Glucose (74-99) mg/dL Calcium (8.4-10.2) mg/dL Total Bilirubin (0.2-1.3) mg/dL AST (17-59) U/L ALT (4-49) U/L Alkaline Phosphatase (38-126) U/L Troponin I <0.012 (0.000-0.034) ng/mL Total Protein (6.3-8.2) g/dL Albumin (3.5-5.0) g/dL Disposition Clinical Impression: Eden's palsy Disposition: HOME SELF-CARE Condition: Good Instructions (If sedation given, give patient instructions): [place] Palsy (ED) Prescriptions: predniSONE [Deltasone] 30 mg PO BID #15 tab valACYclovir HCL [Valacyclovir] 1,000 mg PO TID #30 tab Is patient prescribed a controlled substance at d/c from ED?: No Referrals: Eladio Nance MD [Primary Care Provider] - 1-2 days Time of Disposition: 18:44
[2021-09-14 17:38] LABS: Basophils # (A) 0.1 k/uL (0-0.2); Basophils % (A) 1 %; Eosinophils # (A) 0.2 k/uL (0-0.7); Eosinophils % (A) 2 %; HCT 47.7 % (39.0-53.0); HGB 15.8 gm/dL (13.0-17.5); Lymphocytes # (A) 2.3 k/uL (1.0-4.8); Lymphocytes % (A) 23 %; MCH 30.4 pg (25.0-35.0); MCV 91.9 fL (80.0-100.0); Mean Platelet Volume 6.6; Monocytes # (A) 0.6 k/uL (0-1.0); Monocytes % (A) 6 %; Neutrophils # (A) 6.7 k/uL (1.3-7.7); Neutrophils % (A) 67 %; Platelet Count 225 k/uL (150-450); RBC 5.19 m/uL (4.30-5.90); RDW 13.7 % (11.5-15.5)
[2021-09-14 17:46] LABS: INR 0.9 (<1.2); Partial Thromboplastin Time 25.5 sec (22.0-30.0); Prothrombin Time 10.3 sec (9.0-12.0)
[2021-09-14 17:47] LABS: Albumin 4.4 g/dL (3.5-5.0); Calcium 9.6 mg/dL (8.4-10.2); Total Bilirubin 0.6 mg/dL (0.2-1.3); Total Protein 7.2 g/dL (6.3-8.2)
--- NOTE | 2021-09-14 18:16 | CT ---
EXAMINATION TYPE: CT brain wo con for TPA DATE OF EXAM: 09/14/2021 COMPARISON: None HISTORY: left side facial droop CT DLP: 1192.4 mGycm Automated exposure control for dose reduction was used. Images of the brain obtained with no contrast. There is cerebral cortical atrophy. There is no mass effect or midline shift. No sign of intracranial hemorrhage. Calvarium is intact. There is some opacification of the mastoid sinuses. IMPRESSION: Cerebral atrophy is mild. No acute intracranial abnormality. Bilateral mastoiditis.
--- NOTE | 2021-09-14 18:25 | XR ---
EXAMINATION TYPE: XR chest 2V DATE OF EXAM: 09/14/2021 COMPARISON: NONE HISTORY: Altered mental status TECHNIQUE: 2 views FINDINGS: Heart is normal. There is no heart failure. There are no hilar masses. Mediastinum appears normal. There is some mild pleural thickening at the lung apices. There is a somewhat rounded 2.5 cm infiltra te over the anterior right first rib in the right upper lobe region. No pleural effusion. There are c hest leads. Bony thorax is intact. There is some coarsening of interstitial density right lower lobe. IMPRESSION: Right upper lobe density. Follow-up recommended. No heart failure.
[2021-09-14 19:28] VITALS: BP 154/91; PULSE 55; RESP 18; TEMP 98.1
== END 2021-09-14 19:29 | disposition home or self-care (01) ==
LOC: EC 16:26
DX: G51.0 Bell's palsy (principal); F17.200 Nicotine dependence, unspecified, uncomplicated; I10 Essential (primary) hypertension; E78.5 Hyperlipidemia, unspecified; M19.90 Unspecified osteoarthritis, unspecified site; Z79.899 Other long term (current) drug therapy
CPT/HCPCS: 36415; 93005; 80053; 84484; 85025; 85610; 85730; 71046; 70450; 99285; J7512

== ENCOUNTER 2023-05-12 20:01 | Emergency (ER) | payer MEDICARE ==
[2023-05-12 20:27] VITALS: TEMP 99.5
[2023-05-12] MEDS: ONDANSETRON 4 MG/2 ML VIAL IVP STA ×2 (21:12→23:10)
[2023-05-12] MEDS: SODIUM CHLORIDE 0.9% 1,000 ML IV STA (21:12)
[2023-05-12 21:26] LABS: ALT 17 U/L (4-49); AST 20 U/L (17-59); African American GFR (CKD) 69 (>60 ml/min/1.73 sqM); Albumin 4.5 g/dL (3.5-5.0); Alkaline Phosphatase 97 U/L (38-126); Amylase 55 U/L (30-110); Anion Gap 12 mmol/L; Blood Urea Nitrogen 26 mg/dL (9-20); Calcium 9.3 mg/dL (8.4-10.2); Carbon Dioxide 21 mmol/L (22-30); Chloride 107 mmol/L (98-107); Glucose 150 mg/dL (74-99); INR 0.9 (<1.2); Lipase 57 U/L (23-300); Non-African American GFR(CKD) 59 (>60 ml/min/1.73 sqM); Partial Thromboplastin Time 25.2 sec (22.0-30.0); Prothrombin Time 10.4 sec (10.0-12.5); Sodium 140 mmol/L (137-145); Total Bilirubin 0.8 mg/dL (0.2-1.3); Total Protein 7.6 g/dL (6.3-8.2)
[2023-05-12 21:27] LABS: Basophils # (A) 0.1 k/uL (0-0.2); Basophils % (A) 1 %; Eosinophils # (A) 0.1 k/uL (0-0.7); Eosinophils % (A) 0 %; HCT 50.5 % (39.0-53.0); HGB 16.7 gm/dL (13.0-17.5); Lymphocytes # (A) 1.4 k/uL (1.0-4.8); Lymphocytes % (A) 8 %; MCH 30.7 pg (25.0-35.0); MCV 93.2 fL (80.0-100.0); Mean Platelet Volume 7.1; Monocytes # (A) 0.9 k/uL (0-1.0); Monocytes % (A) 5 %; Neutrophils % (A) 86 %; Platelet Count 241 k/uL (150-450); RBC 5.42 m/uL (4.30-5.90); RDW 13.8 % (11.5-15.5); WBC 17.6 k/uL (3.8-10.6)
--- NOTE | 2023-05-12 22:38 | ED ---
General Adult HPI - General Source: patient, family, RN notes reviewed, old records reviewed Mode of arrival: ambulatory Limitations: no limitations <Slava Whiting - Last Filed: 05/12/23 22:46> <Marta Adams - Last Filed: 05/13/23 06:01> - General Chief complaint: Abdominal Pain Stated complaint: abd pain Time Seen by Provider: 05/12/23 20:30 - History of Present Illness Initial comments: Patient is a 77-year-old male who presents emergency department complaining of abdominal pain. Has not urinated at all today. Has a history of hypertension, hyperlipidemia. States he feels like he has to urinate but has not been able to. Denies any diarrhea, constipation. Endorses some suprapubic abdominal pain with some radiation to primarily the right flank. Denies chest pain or shortness of breath. Denies any fevers or chills. Presents for further evaluation at this time. (Slava Whiting) - Related Data Home Medications Medication Instructions Recorded Confirmed Losartan [Cozaar] 25 mg PO DAILY 01/23/18 09/14/21 Meloxicam 15 mg PO DAILY 01/23/18 09/14/21 amLODIPine [Norvasc] 10 mg PO HS 01/23/18 09/14/21 atenoloL [Tenormin] 50 mg PO DAILY 01/23/18 09/14/21 Cetirizine HCl [Zyrtec] 10 mg PO DAILY 09/14/21 09/14/21 Gabapentin 300 mg PO BID 09/14/21 09/14/21 Simvastatin [Zocor] 40 mg PO HS 09/14/21 09/14/21 Tamsulosin [Flomax] 0.4 mg PO DAILY 09/14/21 09/14/21 diphenhydrAMINE [Benadryl] 25 mg PO HS 09/14/21 09/14/21 Previous Rx's Medication Instructions Recorded Aspirin 325 mg PO DAILY #14 tab 01/25/18 predniSONE [Deltasone] 30 mg PO BID #15 tab 09/14/21 valACYclovir HCL [Valacyclovir] 1,000 mg PO TID #30 tab 09/14/21 Ciprofloxacin HCl [Cipro] 500 mg PO Q12HR #20 tablet 05/13/23 HYDROcodone/APAP 5-325MG [Summit 1 tab PO Q4HR PRN 3 Days #18 tab 05/13/23 5-325] Ondansetron Odt [Zofran Odt] 4 mg PO Q8HR PRN #20 tab 05/13/23 Allergies Allergy/AdvReac Type Severity Reaction Status Date / Time No Known Allergies Allergy Verified 05/12/23 20:16 Review of Systems ROS Other: All systems not noted in ROS Statement are negative. <Slava Whiting - Last Filed: 05/12/23 22:46> ROS Other: All systems not noted in ROS Statement are negative. <BryanMarta Georgiana - Last Filed: 05/13/23 06:01> ROS Statement: Those systems with pertinent positive or pertinent negative responses have been documented in the HPI. Review of Systems: CONST: Denies fever EYES: Denies blurry vision ENT: Denies nasal congestion C/V: Denies Chest pain RESP: Denies shortness of breath GI: Endorses abdominal pain : Denies dysuria SKIN: Denies rash. MSK: Denies joint pain. NEURO: Denies headache (Slava Whiting) Past Medical History Past Medical History: Hyperlipidemia, Hypertension, Osteoarthritis (OA) Additional Past Medical History / Comment(s): Recent difficulty urinating, "feels like he has to go but can't." History of Any Multi-Drug Resistant Organisms: None Reported Past Surgical History: Orthopedic Surgery Additional Past Surgical History / Comment(s): Right hand surgery. Past Anesthesia/Blood Transfusion Reactions: No Reported Reaction Past Psychological History: No Psychological Hx Reported Smoking Status: Current every day smoker Past Alcohol Use History: Rare Past Drug Use History: None Reported - Past Family History Sister(s) Family Medical History: Cancer Additional Family Medical History / Comment(s): Breast cancer. <Slava Whiting - Last Filed: 05/12/23 22:46> General Exam Limitations: no limitations <Slava Whiting - Last Filed: 05/12/23 22:46> - General Exam Comments Initial Comments: General: Appears in no acute distress. HEAD: Normal with no signs of head trauma. EYES: PERRLA, EOMI, conjunctiva normal, no discharge. ENT: Hearing grossly intact, normal oropharynx. RESPIRATORY: Clear breath sounds bilaterally. No wheezes, rales, or rhonchi. C/V: Regular rate and rhythm. S1 and S2 auscultated, no edema, peripheral pulses 2+ and intact throughout ABD: Abdomen is soft. Distended in the suprapubic region. Tender to palpation in the suprapubic region. No guarding. No peritoneal signs. No rebound tenderness. : Patient appears to have hypospadias. No discharge from the urethral meatus. EXT: Normal range of motion, no obvious deformity SKIN: No rashes or lesions observed on exposed skin. NEURO: Alert and oriented x 4. (Slava Whiting) Course Vital Signs 05/12/23 05/12/23 05/13/23 20:06 22:48 02:05 Temperature 99.5 F Pulse Rate 54 L 60 65 Respiratory 22 17 15 Rate Blood Pressure 173/84 171/82 158/60 O2 Sat by Pulse 99 98 98 Oximetry 05/13/23 03:30 Temperature Pulse Rate 89 Respiratory 16 Rate Blood Pressure 139/93 O2 Sat by Pulse 98 Oximetry Medical Decision Making - Lab Data Result diagrams: 05/12/23 21:11 05/12/23 21:11 - EKG Data -: EKG Interpreted by Me <Slava Whiting - Last Filed: 05/12/23 22:46> - Lab Data Result diagrams: 05/12/23 21:11 05/12/23 21:11 <Marta Adams - Last Filed: 05/13/23 06:01> - Medical Decision Making Was pt. sent in by a medical professional or institution ([facility], SURVEILLANCE SPECIALIST, urgent care, hospital, or long-term...) When possible be specific @ -No Did you speak to anyone other than the patient for history (EMS, parent, family, police, friend...)? What history was obtained from this source @ -No Did you review nursing and triage notes (agree or disagree)? Why? @ -I reviewed and agree with nursing and triage notes Were old charts reviewed (outside hosp., previous admission, EMS record, old EKG, old radiological studies, urgent care reports/EKG's, long-term records)? Report findings @ -Old charts reviewed, including EKGs Differential Diagnosis (chest pain, altered mental status, abdominal pain women, abdominal pain men, vaginal bleeding, weakness, fever, dyspnea, syncope, headache, dizziness, GI bleed, back pain, seizure, CVA, palpatations, mental health, musculoskeletal)? @ -Differential Abdominal Pain Men: Appendicitis, cholecystitis, diverticulosis, ischemic bowel, pancreatitis, hepatitis, UTI, gastroenteritis, AAA, incarcerated hernia, bowel obstruction, constipation, inflammatory bowel, hepatitis, peptic ulcer disease, splenic infarction, perforated viscus, testicular torsion, this is not meant to be an all-inclusive list EKG interpreted by me (3pts min.). @ -As above X-rays interpreted by me (1pt min.). @ -None done CT interpreted by me (1pt min.). @ -None done U/S interpreted by me (1pt. min.). @ -Pending What testing was considered but not performed or refused? (CT, X-rays, U/S, labs)? Why? @ -None What meds were considered but not given or refused? Why? @ -None Did you discuss the management of the patient with other professionals (professionals i.e. , PA, SURVEILLANCE SPECIALIST, lab, RT, psych nurse, social work case manager, servicing rep, teacher, artillery officer, family preservation caseworker)? Give summary @ -No Was smoking cessation discussed for >3mins.? @ -No Was critical care preformed (if so, how long)? @ -No Were there social determinants of health that impacted care today? How? (Homelessness, low income, unemployed, alcoholism, drug addiction, transportation, low edu. Level, literacy, decrease access to med. care, care home, rehab)? @ -No Was there de-escalation of care discussed even if they declined (Discuss DNR or withdrawal of care, Hospice)? DNR status @ -No What co-morbidities impacted this encounter? (DM, HTN, Smoking, COPD, CAD, Cancer, CVA, ARF, Chemo, Hep., AIDS, mental health diagnosis, sleep apnea, morbid obesity)? @ -None Was patient admitted / discharged? Hospital course, mention meds given and route, prescriptions, significant lab abnormalities, going to OR and other pertinent info. @ -Patient presents for decreased urination as well as abdominal pain. I am concerned for retention but cannot rule out other etiology at this time. Bladder scan shows over 250 cc of urine present. Patient is unable to void. Therefore we will place a Chapman catheter and obtain abdominal laboratory studies as well as an ultrasound of the bladder and kidneys. Patient was in agreement this plan. He will be treated with 1 L fluid bolus as well as IV Zofran. There is a great amount of difficulty in placing the patient's Chapman catheter. Patient has hypospadias and likely has some strictures present. We were able to initially thread a female straight catheter 8 gauge and provide some relief with some urination, and then we were able to place a 12 [place] Chapman catheter. Patient's laboratory studies are remarkable for leukocytosis of 17.6. Lactic acid within acceptable limits. Urinalysis as well as ultrasound still pending at this time. Patient empirically given a dose of Rocephin and prescription for ciprofloxacin sent. Patient signed out to Dr. Adams pending results of imaging. Undiagnosed new problem with uncertain prognosis? @ -No Drug Therapy requiring intensive monitoring for toxicity (Heparin, Nitro, Insulin, Cardizem)? @ -No Were any procedures done? @ -No Diagnosis/symptom? @ -Urinary retention Acute, or Chronic, or Acute on Chronic? @ -Acute Uncomplicated (without systemic symptoms) or Complicated (systemic symptoms)? @ -Complicated Side effects of treatment? @ -No Exacerbation, Progression, or Severe Exacerbation? @ -No Poses a threat to life or bodily function? How? (Chest pain, [place], NE, pneumonia, PE, COPD, DKA, ARF, appy, cholecystitis, CVA, Diverticulitis, Homicidal, Suicidal, threat to staff... and all critical care pts) @ -Yes (Slava Whiting) Was patient admitted / discharged? Hospital course, mention meds given and route, prescriptions, significant lab abnormalities, going to OR and other pertinent info. @ -Patient was signed out to me pending results of the ultrasound and urinalysis. Urinalysis is concerning for infection. Ultrasound demonstrates no acute process. I evaluated the patient myself and he continues to have pain. I did provide him with pain medications. I did recommend CT was performed and demonstrates a right-sided ureteral stone. Patient is reevaluated and has had marked improvement in his pain. I did discuss the treatment options. Patient is comfortable going home. He does have ureteral stone with nitrite positive urine however no signs of sepsis. Patient will be discharged home with a prescription for Summit, Zofran and Cipro. Patient is to take the medications as directed. Call and make an appointment with urology. I will leave the catheter in place at this time as it was significantly difficult to obtain. He is to discuss his meatal stricture with urology. Return for any new or worsening symptoms per patient agreeable plan was discharged in stable condition Undiagnosed new problem with uncertain prognosis? @ -No Drug Therapy requiring intensive monitoring for toxicity (Heparin, Nitro, Insulin, Cardizem)? @ -No Were any procedures done? @ -Catheter placement Diagnosis/symptom? @ -Acute right flank pain, acute ureteral stone with hydronephrosis, abnormal UA, urethral stricture status post Chapman placement Acute, or Chronic, or Acute on Chronic? @ -Acute Uncomplicated (without systemic symptoms) or Complicated (systemic symptoms)? @ -Complicated Side effects of treatment? @ -No Exacerbation, Progression, or Severe Exacerbation? @ -No Poses a threat to life or bodily function? How? (Chest pain, USA, NE, pneumonia, PE, COPD, DKA, ARF, appy, cholecystitis, CVA, Diverticulitis, Homicidal, Suicidal, threat to staff... and all critical care pts) @ -No (Marta Adams) - Lab Data Lab Results 05/12/23 05/12/23 05/12/23 Range/Units 21:11 21:11 21:11 WBC 17.6 H (3.8-10.6) k/uL RBC 5.42 (4.30-5.90) m/uL Hgb 16.7 (13.0-17.5) gm/dL Hct 50.5 (39.0-53.0) % MCV 93.2 (80.0-100.0) fL MCH 30.7 (25.0-35.0) pg MCHC 33.0 (31.0-37.0) g/dL RDW 13.8 (11.5-15.5) % Plt Count 241 (150-450) k/uL MPV 7.1 Neutrophils % 86 % Lymphocytes % 8 % Monocytes % 5 % Eosinophils % 0 % Basophils % 1 % Neutrophils # 15.0 H (1.3-7.7) k/uL Lymphocytes # 1.4 (1.0-4.8) k/uL Monocytes # 0.9 (0-1.0) k/uL Eosinophils # 0.1 (0-0.7) k/uL Basophils # 0.1 (0-0.2) k/uL PT 10.4 (10.0-12.5) sec INR 0.9 (<1.2) APTT 25.2 (22.0-30.0) sec Sodium 140 (137-145) mmol/L Potassium 4.0 (3.5-5.1) mmol/L Chloride 107 (98-107) mmol/L Carbon Dioxide 21 L (22-30) mmol/L Anion Gap 12 mmol/L BUN 26 H (9-20) mg/dL Creatinine 1.17 (0.66-1.25) mg/dL Est GFR (CKD-EPI)AfAm 69 (>60 ml/min/1.73 sqM) Est GFR (CKD-EPI)NonAf 59 (>60 ml/min/1.73 sqM) Glucose 150 H (74-99) mg/dL Plasma Lactic Acid Daniel (0.7-2.0) mmol/L Calcium 9.3 (8.4-10.2) mg/dL Total Bilirubin 0.8 (0.2-1.3) mg/dL AST 20 (17-59) U/L ALT 17 (4-49) U/L Alkaline Phosphatase 97 (38-126) U/L Total Protein 7.6 (6.3-8.2) g/dL Albumin 4.5 (3.5-5.0) g/dL Amylase 55 (30-110) U/L Lipase 57 (23-300) U/L Urine Color Urine Appearance (Clear) Urine pH (5.0-8.0) Ur Specific [place] (1.001-1.035) Urine Protein (Negative) Urine Glucose (UA) (Negative) Urine Ketones (Negative) Urine Blood (Negative) Urine Nitrite (Negative) Urine Bilirubin (Negative) Urine Urobilinogen (<2.0) mg/dL Ur Leukocyte Esterase (Negative) Urine RBC (0-5) /hpf Urine WBC (0-5) /hpf Urine WBC Clumps (None) /hpf Ur Squamous Epith Cells (0-4) /hpf Amorphous Sediment (None) /hpf Urine Bacteria (None) /hpf Urine Mucus (None) /hpf 05/12/23 05/12/23 Range/Units 21:11 22:24 WBC (3.8-10.6) k/uL RBC (4.30-5.90) m/uL Hgb (13.0-17.5) gm/dL Hct (39.0-53.0) % MCV (80.0-100.0) fL MCH (25.0-35.0) pg MCHC (31.0-37.0) g/dL RDW (11.5-15.5) % Plt Count (150-450) k/uL MPV Neutrophils % % Lymphocytes % % Monocytes % % Eosinophils % % Basophils % % Neutrophils # (1.3-7.7) k/uL Lymphocytes # (1.0-4.8) k/uL Monocytes # (0-1.0) k/uL Eosinophils # (0-0.7) k/uL Basophils # (0-0.2) k/uL PT (10.0-12.5) sec INR (<1.2) APTT (22.0-30.0) sec Sodium (137-145) mmol/L Potassium (3.5-5.1) mmol/L Chloride (98-107) mmol/L Carbon Dioxide (22-30) mmol/L Anion Gap mmol/L BUN (9-20) mg/dL Creatinine (0.66-1.25) mg/dL Est GFR (CKD-EPI)AfAm (>60 ml/min/1.73 sqM) Est GFR (CKD-EPI)NonAf (>60 ml/min/1.73 sqM) Glucose (74-99) mg/dL Plasma Lactic Acid Daniel 1.1 (0.7-2.0) mmol/L Calcium (8.4-10.2) mg/dL Total Bilirubin (0.2-1.3) mg/dL AST (17-59) U/L ALT (4-49) U/L Alkaline Phosphatase (38-126) U/L Total Protein (6.3-8.2) g/dL Albumin (3.5-5.0) g/dL Amylase (30-110) U/L Lipase (23-300) U/L Urine Color Yellow Urine Appearance Cloudy (Clear) Urine pH 6.5 (5.0-8.0) Ur Specific [place] 1.023 (1.001-1.035) Urine Protein Trace H (Negative) Urine Glucose (UA) 2+ H (Negative) Urine Ketones 1+ H (Negative) Urine Blood Trace H (Negative) Urine Nitrite Positive (Negative) Urine Bilirubin Negative (Negative) Urine Urobilinogen <2.0 (<2.0) mg/dL Ur Leukocyte Esterase Trace H (Negative) Urine RBC 6 H (0-5) /hpf Urine WBC 6 H (0-5) /hpf Urine WBC Clumps Rare H (None) /hpf Ur Squamous Epith Cells <1 (0-4) /hpf Amorphous Sediment Moderate H (None) /hpf Urine Bacteria Rare H (None) /hpf Urine Mucus Occasional H (None) /hpf - EKG Data EKG Comments: 12-lead Electrocardiogram Interpretation Note EKG was reviewed and interpreted by myself. 12-lead ECG performed at 2046 is interpreted by me as revealing sinus bradycardia at a rate of 56 beats per minute. Left axis deviation. Right bundle branch block. Left ventricular hypertrophy. All chronic findings. TN interval is 196 ms, QRS duration is 163 ms, QTc is 514 ms. Chronic T wave inversions seen in the precordial leads. Seen on EKG from September 2021.. There were no cute ST or T wave abnormalities to suggest myocardial ischemia or injury. R wave progression across the precordium was delayed. By my interpretation this EKG is non-diagnostic for acute ischemia. (Slava Whiting) Disposition Is patient prescribed a controlled substance at d/c from ED?: No Time of Disposition: 22:44 <Slava Whiting - Last Filed: 05/12/23 22:46> Is patient prescribed a controlled substance at d/c from ED?: Yes When asked, does pt state using other controlled substances?: No If prescribed controlled substance>3 days was MAPS reviewed?: Prescribed <3 Days If opioid is for acute pain is fill amount 7 days or less?: Yes <Marta Adams - Last Filed: 05/13/23 06:01> Clinical Impression: Urinary retention, Chapman catheter in place, Ureteral stone with hydronephrosis, Urethral stenosis Disposition: HOME SELF-CARE Condition: Good Instructions (If sedation given, give patient instructions): Kidney Stones (ED), Urinary Retention in Men (ED), Chapman Catheter Placement and Care (ED) Additional Instructions: Please take the pain and nausea medications as needed. Call and make an appointment with the urologist. They will take the catheter out. If you develop a fever, have uncontrolled pain or your bag stops producing urine, return to the emergency department Prescriptions: Ciprofloxacin HCl [Cipro] 500 mg PO Q12HR #20 tablet HYDROcodone/APAP 5-325MG [Summit 5-325] 1 tab PO Q4HR PRN 3 Days #18 tab PRN Reason: Severe Breakthrough Pain Ondansetron Odt [Zofran Odt] 4 mg PO Q8HR PRN #20 tab PRN Reason: Nausea Referrals: Eladio Nance MD [Primary Care Provider] - 1-2 days Prateek Santos MD [STAFF PHYSICIAN] - 1-2 days
[2023-05-12] MEDS: cefTRIAXone IN SWFI 1,000 MG/10 ML SYRINGE IVP STA (23:13)
[2023-05-12] MEDS: CIPROFLOXACIN HCL 500 MG TAB PO STA (23:15)
[2023-05-13 00:23] LABS: Amorphous Sediment,Urine Moderate /hpf; Appearance,Urine Cloudy (Clear); Bacteria,Urine Rare /hpf; Bilirubin,Urine Negative (Negative); Blood,Urine Trace (Negative); Color,Urine Yellow; Glucose,Urine (UA) 2+ (Negative); Ketones,Urine 1+ (Negative); Leukocyte Esterase,Urine Trace (Negative); Mucus,Urine Occasional /hpf; Nitrite,Urine Positive (Negative); PH, Urine 6.5 (5.0-8.0); Protein,Urine Trace (Negative); RBC,Urine 6 /hpf (0-5); Specific Gravity,Urine 1.023 (1.001-1.035); Squamous Epithelial Cell,Urine <1 /hpf (0-4); Urobilinogen,Urine <2.0 mg/dL (<2.0); WBC,Urine 6 /hpf (0-5)
--- NOTE | 2023-05-13 01:58 | US ---
EXAM: US Retroperitoneal Limited, Renal CLINICAL HISTORY: flank pain TECHNIQUE: Real-time limited ultrasound of the retroperitoneum with image documentation. COMPARISON: No relevant prior studies available. FINDINGS: Right kidney: Increased echogenicity. No stones. No solid mass. No hydronephrosis. There is a suggestion of a trace amount of right perinephric fluid. Left kidney: Increased echogenicity. No stones. No solid mass. No hydronephrosis. IMPRESSION: Increased echogenicity of renal parenchyma consistent with nonspecific medical renal disease. No shadowing calculus or significant hydronephrosis sonographically identified.
[2023-05-13] MEDS: MORPHINE SULFATE 4 MG/ML SYRINGE IVP STA (01:59)
--- NOTE | 2023-05-13 02:28 | CT ---
EXAM: CT Abdomen and Pelvis Without and With Intravenous Contrast CLINICAL HISTORY: flank pain TECHNIQUE: Axial computed tomography images of the abdomen and pelvis without and with intravenous contrast. CTDI is 35.3 mGy and DLP is 1837 mGy-cm. This CT exam was performed using one or more of the following dose reduction techniques: automated exposure control, adjustment of the mA and/or kV according to patient size, and/or use of iterative reconstruction technique. COMPARISON: No relevant prior studies available. FINDINGS: ABDOMEN: Liver: Unremarkable. No mass. Gallbladder and bile ducts: Unremarkable. No calcified stones. No ductal dilation. Pancreas: Unremarkable. No mass. No ductal dilation. Spleen: Unremarkable. No splenomegaly. Adrenals: Unremarkable. No mass. Kidneys and ureters: There is mild to moderate right hydroureteronephrosis to the level of the bladder. Coronal images appear to show a tiny calculus in the region of the right UVJ measuring no more than 1 mm (series 202, image 66). There is delay in excretion from the right kidney. Extensive right perinephric edema is seen. Stomach and bowel: Diverticulosis without diverticulitis. No obstruction. PELVIS: Appendix: No findings to suggest acute appendicitis. Bladder: Chapman catheter in the bladder. No stones. ABDOMEN and PELVIS: Intraperitoneal space: Unremarkable. No free air. No significant fluid collection. Bones/joints: No acute findings. Soft tissues: Indirect right inguinal hernia containing fat.. Vasculature: Unremarkable. No abdominal aortic aneurysm. Lymph nodes: Unremarkable. No enlarged lymph nodes. IMPRESSION: There is mild to moderate right hydroureteronephrosis to the level of the bladder. Coronal images appear to show a tiny calculus in the region of the right UVJ measuring no more than 1 mm.
[2023-05-13] MEDS: HYDROcodone/APAP 5-325MG 1 EACH TAB PO STA (03:11)
[2023-05-13 04:06] VITALS: BP 139/93; PULSE 89; RESP 16
== END 2023-05-13 03:32 | disposition home or self-care (01) ==
LOC: EC 20:01
DX: T83.098A Other mechanical complication of other urinary catheter, initial encounter (principal); R33.9 Retention of urine, unspecified; N13.2 Hydronephrosis with renal and ureteral calculous obstruction; N35.919 Unspecified urethral stricture, male, unspecified site
CPT/HCPCS: 51702; 99285; 96374; 96375 ×2; 96376; 96361 ×5; 51798; 36415; 93005; 80053; 82150; 83605; 83690; 85025; 85610; 85730; 81001; 76770; 74178; J2270; J2405; J0696; Q9967

== ENCOUNTER → 2023-06-13 | Outpatient (CLI) | payer MEDICARE ==
--- NOTE | 2023-06-13 14:19 | US ---
EXAMINATION TYPE: US kidneys/renal and bladder DATE OF EXAM: 06/13/2023 COMPARISON: NONE CLINICAL INDICATION: Male, 77 years old with history of N13.2 HYDRONEPHROSIS WITH RENAL AND URETERAL CALCU; History of stones. EXAM MEASUREMENTS: Right Kidney: 11.1 x 4.5 x 3.7 cm Left Kidney: 12.4 x 4.6 x 4.2 cm Right Kidney: No hydronephrosis or masses seen Left Kidney: No hydronephrosis or masses seen Bladder: Anechoic Bilateral Jets seen: no There is no evidence for hydronephrosis at this point in time. No nephrolithiasis is seen. No fay s are identified. The urinary bladder is anechoic. IMPRESSION: No evidence for obstructive uropathy or calculus.
== END | disposition home or self-care (01) ==
LOC: RADUSWWP 13:14
PROVIDERS: ATTEND Urology
DX: N13.2 Hydronephrosis with renal and ureteral calculous obstruction (principal)
CPT/HCPCS: 76770